=== PATIENT | male | born 1965 | race Caucasian/White ===

== ENCOUNTER 2018-10-21 19:30 | Emergency (ER) | payer SELFPAY ==
[2018-10-21 19:54] LABS: #Eosinphils 0.1 thou/uL (0.0-0.7); #Lymphocytes 2.2 thou/uL (1.20-3.40); #Monocytes 0.4 thou/uL (0.11-0.59); %Basophils 0.4 % (0.0-1.0); %Monocytes 6.6 % (0.0-10.0); %Neutrophils 52.1 % (42.0-75.0); Hemoglobin 13.9 g/dL (14.0-18.0); Mean Corpuscular HGB CONC 35.1 g/dL (32.0-36.0); Mean Corpuscular Hemoglobin 32.2 pg (27.0-31.0); Mean Corpuscular Volume 91.7 fL (78.0-98.0); Mean Platelet Volume 8.2 fL (7.4-10.4); Platelet Count 179 thou/uL (130-400); RBC Distribution Width 11.1 % (11.5-14.5); Red Blood Cell (RBC) Count 4.33 mill/uL (4.70-6.10); White Blood Cell (WBC) Count 5.7 thou/uL (4.8-10.8)
[2018-10-21 20:16] LABS: ALT (SGPT) 23 U/L (8-55); AST (SGOT) 16 U/L (5-34); Albumin 4.6 g/dL (3.5-5.0); Alkaline Phosphatase 72 U/L (40-150); Anion Gap 12 mmol/L (10-20); BUN (Urea Nitrogen) 13 mg/dL (8.4-25.7); Bilirubin, Total 0.7 mg/dL (0.2-1.2); Calc. Creatinine Clearance 0 mL/min (70-130); Calcium 10.4 mg/dL (7.8-10.44); Carbon Dioxide 25 mmol/L (22-29); Chloride 104 mmol/L (98-107); Estimated GFR-MDRD 71; Globulin 2.3 g/dL (2.4-3.5); Glucose 104 mg/dL (70-105); Lipase 41 U/L (8-78); Potassium 3.8 mmol/L (3.5-5.1); Protein, Total 6.9 g/dL (6.0-8.3); Sodium 137 mmol/L (136-145)
[2018-10-21 20:55] LABS: Bilirubin Negative (Negative); Blood, Urine Negative (Negative); Clarity Turbid (Clear); Glucose, Urine (Dipstick) Normal (Negative); Leukocyte Negative Leu/uL (Negative); Nitrite Negative (Negative); Protein, Urine (Dipstick) Negative (Neg-Trace); Urobilinogen Normal mg/dL (Less than 2)
[2018-10-21] MEDS ORDERED: Ondansetron PF 4 MG/2 ML Vial ONE (20:56)
--- NOTE | 2018-10-21 21:19 | ULT ---
US Gallbladder RUQ HISTORY: Right upper quadrant pain COMPARISON: None. FINDINGS: Real-time imaging of the right upper quadrant shows a mildly distended gallbladder no galls tones. The common duct is 3 mm. Visualized liver parenchyma shows no focal abnormalities. It measures 16.7 cm in length. The pancreas is obscured. The right kidney is normal in size and not obstructed. IMPRESSION: Unremarkable gallbladder ultrasound.
--- NOTE | 2018-10-21 21:43 | RAD ---
XR Chest 1 View Portable HISTORY: Right-sided pain with diaphoresis COMPARISON: None. FINDINGS: Heart size and mediastinum are within normal limits. The lungs are clear of infiltrates. Th ere are mild arthritic changes of the right shoulder. IMPRESSION: No active intrathoracic disease.
[2018-10-21] MEDS ORDERED: Dicyclomine 20 MG TAB ONE (21:44)
[2018-10-21] MEDS ORDERED: Lidocaine Viscous Sol 2% 15 ml UD Cup ONE (21:52)
[2018-10-21] MEDS ORDERED: Famotidine/PF 20 mg/2ml Vial ONE ×2 (21:52→21:54)
== END 2018-10-21 22:58 | disposition home or self-care (01) ==
LOC: ERS 19:30
DX: R10.11 Right upper quadrant pain (principal); R10.13 Epigastric pain; E78.5 Hyperlipidemia, unspecified; I10 Essential (primary) hypertension; F31.9 Bipolar disorder, unspecified; F43.10 Post-traumatic stress disorder, unspecified; F17.210 Nicotine dependence, cigarettes, uncomplicated; Z79.899 Other long term (current) drug therapy
CPT/HCPCS: 36415; 71045; 76705; 80053; 81003; 83690; 84484; 85025; 93005; 96361; 96372; 96374; 96375; J0500; J2405; S0028